=== PATIENT | male | born 1990 | race Caucasian/White ===

== ENCOUNTER → 2016-03-23 | Outpatient (CLI) | payer BC ==
--- NOTE | 2016-03-23 11:13 | DX ---
Right ankle, three views. History: trauma, pain Findings: Ankle mortice is intact. No fracture or joint effusion. Lateral soft tissue swelling is p resent. Impression: Negative right ankle series.
== END ==
LOC: BMCIMAGING 10:15
PROVIDERS: ATTEND Podiatrist Foot & Ankle Surgery
DX: S99.911A Unspecified injury of right ankle, initial encounter (principal); X58.XXXA Exposure to other specified factors, initial encounter